=== PATIENT | female | born 1965 | race Caucasian/White ===

== ENCOUNTER → 2016-11-16 | Outpatient (CLI) | payer OTHER ==
[~2016-11-16] MED LIST: CYCL-259 PO; EFFEXOR; FLEXERIL; GABA300C PO; LISI2.5T PO; LISINOPRIL; OMEP10CA4 PO; VENL75CA PO; ZOLP6.252 PO
== END | disposition home or self-care (01) ==
LOC: RAD 09:43
PROVIDERS: ATTEND Nurse Practitioner Primary Care
DX: R05 Cough (principal); M41.9 Scoliosis, unspecified; M41.84 Other forms of scoliosis, thoracic region
CPT/HCPCS: 71020